=== PATIENT | male | born 1950 | race African-American/Black ===

== ENCOUNTER 2021-02-11 11:44 | Outpatient (CLI) | payer OTHER ==
[2021-02-12 04:12] LABS: SARS-CoV-2 PCR by NAA Not Detected (NotDetected)
== END 2021-02-11 11:45 | disposition home or self-care (01) ==
LOC: CSHLAB 11:44
PROVIDERS: ATTEND Internal Medicine Gastroenterology
DX: Z20.822 Contact with and (suspected) exposure to COVID-19 (principal); K63.5 Polyp of colon
CPT/HCPCS: 87635; U0003; U0005

== ENCOUNTER 2021-02-16 06:48 | Day surgery (SDC) | payer OTHER ==
[2021-02-12 15:06] VITALS: BMI 32.8
[2021-02-16] MEDS ORDERED: PROPOFOL 40 ML ONE (06:52)
[2021-02-16] MEDS ORDERED: Lidocaine 1% MPF 2 ML VIAL ONE (07:43)
== END 2021-02-16 09:50 | disposition home or self-care (01) ==
LOC: CSHSDC 06:48
PROVIDERS: ATTEND Internal Medicine Gastroenterology
PROC: 0DJD8ZZ Inspection of Lower Intestinal Tract, Via Natural or Artificial Opening Endoscopic (ICD-10-PCS; principal; 2021-02-16)
DX: Z12.11 Encounter for screening for malignant neoplasm of colon (principal); Z86.010 Personal history of colon polyps; K64.9 Unspecified hemorrhoids; I10 Essential (primary) hypertension; E78.5 Hyperlipidemia, unspecified; N40.0 Benign prostatic hyperplasia without lower urinary tract symptoms; F41.8 Other specified anxiety disorders; E11.9 Type 2 diabetes mellitus without complications
CPT/HCPCS: J2704